=== PATIENT | female | born 1990 | race Caucasian/White ===

== ENCOUNTER 2018-01-06 17:59 | Emergency (ER) | payer OTHER ==
[2018-01-06 18:06] VITALS: TEMP 98; BMI 23.1
--- NOTE | 2018-01-06 18:37 | PDOC ---
History of Present Illness - General Chief Complaint: Pain, Acute Stated Complaint: CRAMPING/ Time Seen by Provider: 01/06/18 18:33 - History of Present Illness Initial Comments: 01/06/18 19:25 The patient is a 27 year old 8 week with no significant PMH who presents for evaluation of nausea, vomiting, and abdominal cramping. The patient reports a 1 day history of intermittent abdominal cramping with consistent nausea and vomiting. The patient reports continued symptoms including lightheadedness and mild headache prompting her presentation to the ED for further evaluation. The patient notes that she is currently being treated for a uti with antibiotics over the past week and is currently asymptomatic with regards to her UTI. She denies any vaginal bleeding or vaginal discharge. She otherwise denies fevers, chills, SOB, chest pain, or changes with bowel movements. Past History - Past Medical History Allergies/Adverse Reactions: Allergies Allergy/AdvReac Type Severity Reaction Status Date / Time No Known Allergies Allergy Verified 01/06/18 19:15 Home Medications: Ambulatory Orders Cephalexin [Keflex] 500 mg PO BID 01/06/18 Nitrofurantoin Monohyd/M-Cryst [Macrobid -] 100 mg PO BID #14 capsule 01/06/18 COPD: No Psychiatric Problems: Yes (anxiety) - Immunization History Immunization Up to Date: Yes - Suicide/Smoking/Psychosocial Hx Smoking History: Never smoked Have you smoked in the past 12 months: No Hx Alcohol Use: No Drug/Substance Use Hx: No Substance Use Type: None Review of Systems - Review of Systems Comments:: 01/06/18 19:37 Constitutional: No fevers, chills, fatigue, malaise HEENT: No Rhinorrhea, nasal congestion, visual changes Cardiovascular: Lightheadedness. No chest pain, syncope, palpitations, Respiratory: No Cough, SOB, Hemoptysis, Gastrointestinal: Cramping, Nausea, Vomiting. No Constipation, Diarrhea, Melena Genitourinary: No Dysuria, Frequency, Urgency, Hesitancy, Hematuria, Flank pain , Vaginal Bleeding, Vaginal Discharge. Musculoskeletal: No Myalgia, arthralgia Skin: No rashes, itching, bruising, pallor Neurologic: Headache. No Dizziness, Numbness, Weakness, or Tingling Psychiatric: No Hallucinations. No SI or HI *Physical Exam - Vital Signs Last Vital Signs Temp Pulse Resp BP Pulse Ox 98.0 F 85 18 124/62 99 01/06/18 18:02 01/06/18 18:02 01/06/18 18:02 01/06/18 18:02 01/06/18 18:02 - Physical Exam Comments: 01/06/18 19:40 General Appearance: Nourished. No Apparent Distress HEENT: EOMI, FREEDOM. No Pharyngeal Erythema, Tonsillar Exudate, Tonsillar Erythema Neck: No Cervical Lymphadenopathy Respiratory/Chest: Lungs Clear, Normal Breath Sounds. No Crackles, Rales, Rhonchi, Wheezing Cardiovascular: Regular Rhythm, Regular Rate. No Murmur, Gallops, Rubs Gastrointestinal/Abdominal: Normal Bowel Sounds, Soft. No Guarding, Rebound, Tenderness Musculoskeletal: No CVA Tenderness Extremity: Normal Capillary Refill Integumentary: Normal Color, Dry, Warm Neurologic: Fully Oriented, Alert, Normal Mood/Affect, Normal Response, ED Treatment Course - LABORATORY CBC & Chemistry Diagram: 01/06/18 18:55 01/06/18 18:55 Medical Decision Making - Medical Decision Making 01/06/18 19:40 The patient is a 27 year old 8 week with no significant PMH who presents for evaluation of nausea, vomiting, and abdominal cramping. Differential includes but is not limited to: Hyperemesis Gravidum, Viral Illness , Infectious, Metabolic Derangement. Given the patient's history, we will obtain a cbc, cmp, beta-hcg, lipase, ua, urine culture and transvag US to evaluate further for possible etiologies. We will treat in the meantime with iv fluids, zofran and iv tylenol. We will continue to monitor and reassess in the meantime. 01/06/18 22:36 CBC, cmp, lipase are unremarkable. UA demonstrates concerns for a UTI with positive leuk esterase and 17 wbc. Transvag US demonstrates a normal intrautrine as preliminarily read by our correction lieutenant radiologist. We will switch the patient to macrobid and are comfortable discharging the patient home at this time with primary care provider follow up. We discussed the results, plan, and return precautions with the patient who voiced understanding and is agreeable with the plan. *DC/Admit/Observation/Transfer Diagnosis at time of Disposition: UTI (urinary tract infection) Qualifiers: Urinary tract infection type: site unspecified Hematuria presence: without hematuria Qualified Code(s): N39.0 - Urinary tract infection, site not specified - Discharge Dispostion Disposition: HOME Condition at time of disposition: Stable Decision to Admit order: No - Prescriptions Prescriptions: Nitrofurantoin Monohyd/M-Cryst [Macrobid -] 100 mg PO BID #14 capsule - Referrals - Patient Instructions Printed Discharge Instructions: DI for Urinary Tract Infection (UTI) Additional Instructions: Please return to the ER if you experience concerning or worsening symptoms including worsening abdominal pain, vaginal bleeding, or vomiting. Your lab results show a urinary tract infection here in the ER. We would like you to switch your antibiotics to one that called Macrobid that we have sent to your pharmacy that you should take twice a day for 7 days. It is important that you call to schedule a follow up appointment with your primary care provider and verse writer within 2-3 days to discuss your ER visit and further management of your symptoms. - Post Discharge Activity
[2018-01-06] MEDS ORDERED: SODIUM CHLORIDE 1,000 ML IV STA (18:47)
[2018-01-06] MEDS ORDERED: ACETAMINOPHEN 1000 MG/100 ML VIAL (NON FORMULARY) IVPB ONE (18:47)
[2018-01-06] MEDS ORDERED: ONDANSETRON 4 MG/2 ML VIAL IVPUSH ONE (18:47)
[2018-01-06] MEDS ORDERED: ACETAMINOPHEN INJECTION 100 ML IVPB ONE (19:06)
[2018-01-06] MEDS ORDERED: ONDANSETRON 4 MG/2 ML VIAL ONE (19:06)
[2018-01-06 19:13] LABS: BASO % 0.6 % (0-2.0); EOS % 2.2 % (0-4.5); HEMATOCRIT 41.9 % (32.4-45.2); HEMOGLOBIN 14.1 GM/dL (10.7-15.3); LYMPH % 23.8 % (8-40); MCH 29.4 pg (25.7-33.7); MCHC 33.6 g/dl (32.0-36.0); MEAN CELL VOLUME 87.4 fl (80-96); MEAN PLT VOLUME 8.6 fl (7.5-11.1); MONO % 6.6 % (3.8-10.2); NEUT % 66.8 % (42.8-82.8); PLATELET COUNT 303 K/MM3 (134-434); RBC 4.79 M/mm3 (3.60-5.2); RDW 12.6 % (11.6-15.6); WHITE BLOOD COUNT 11.7 K/mm3 (4.0-10.0)
[2018-01-06 19:34] LABS: ALBUMIN 4.5 g/dl (3.4-5.0); ANION GAP 7 (8-16); BILIRUBIN,TOTAL 0.2 mg/dL (0.2-1.0); BLOOD UREA NITROGEN 7 mg/dL (7-18); CALCIUM 9.2 mg/dL (8.5-10.1); CHLORIDE 107 mmol/L (98-107); CO2 25 mmol/L (21-32); CREATININE 0.5 mg/dL (0.55-1.02); GLUCOSE,RANDOM 77 mg/dL (74-106); POTASSIUM 3.9 mmol/L (3.5-5.1); SGOT/AST 20 U/L (15-37); SGPT/ALT 36 U/L (12-78); SODIUM 139 mmol/L (136-145); TOT PROT 8.8 g/dl (6.4-8.2)
[2018-01-06 19:35] LABS: ALK PHOS 79 U/L (45-117)
--- NOTE | 2018-01-06 20:03 | PDOC ---
Attending Attestation - Resident Resident Name: Bc Amos - ED Attending Attestation I have performed the following: I have examined & evaluated the patient, The case was reviewed & discussed with the resident, I agree w/resident's findings & plan - HPI HPI: 01/06/18 20:00 healthy 27y/o F G1Po LMP about 8 weeks, no ultrasound to date, incidental diagnosis of UTI 4d ago on cephalexin remains asx now with 1d of nausea/nbnb emesis and suprapubic cramping today without bleeding. no diarrhea, no f/c. - Physicial Exam PE: 01/06/18 20:01 VSS well appearing seated in stretcher slightly dry mucosa s1s2, rrr. ctab soft/nt/nd bs nl, no cvat no edema no rash - Medical Decision Making 01/06/18 20:02 27y/o F 1st trimester pelvic cramping without bleeding. ? vomiting in with dehydration and cramps, ? gastroenteritis. labs, ua ivf, anti-emetic pelvic sono reassess and dispo
[2018-01-06 20:17] LABS: URINE APPEARANCE SLCLOUDY; URINE BILIRUBIN NEGATIVE (<2.0 mg/dL); URINE COLOR LTYELLOW; URINE GLUCOSE (UA) NEGATIVE (NEGATIVE); URINE KETONE NEGATIVE (NEGATIVE); URINE NITRITE NEGATIVE (NEGATIVE); URINE PROTEIN NEGATIVE (NEGATIVE); URINE UROBILINOGEN NEGATIVE mg/dL (0.2-1.0)
[2018-01-06 20:19] LABS: URINE LEUK ESTERASE 2+ (NEGATIVE)
[2018-01-06 20:22] LABS: EPI CELLS FEW /HPF (FEW); URINE BACTERIA RARE /hpf (NONE SEEN); URINE MUCUS RARE
[2018-01-06 21:38] VITALS: BP 120/80; PULSE 80
== END 2018-01-06 21:38 | disposition home or self-care (01) ==
LOC: JER 17:59
PROC: 3E0337Z Introduction of Electrolytic and Water Balance Substance into Peripheral Vein, Percutaneous Approach (ICD-10-PCS; principal; 2018-01-06)
PROC: 3E033NZ Introduction of Analgesics, Hypnotics, Sedatives into Peripheral Vein, Percutaneous Approach (ICD-10-PCS; 2018-01-06)
PROC: 3E033GC Introduction of Other Therapeutic Substance into Peripheral Vein, Percutaneous Approach (ICD-10-PCS; 2018-01-06)
DX: O23.31 Infections of other parts of urinary tract in pregnancy, first trimester (principal); Z3A.08 8 weeks gestation of pregnancy
CPT/HCPCS: 36415; 76801-TC; 80053; 81003; 81015; 83690; 84702; 85025; 87086; 96361; 96374; 96375; 99283-25; J0131; J7030

== ENCOUNTER 2018-06-26 11:57 | Emergency (ER) | payer OTHER ==
[2018-06-26 12:07] VITALS: BMI 28.3
[2018-06-26] MEDS ORDERED: SODIUM CHLORIDE 1,000 ML IV STA (12:37)
--- NOTE | 2018-06-26 12:43 | PDOC ---
History of Present Illness - General Chief Complaint: Palpitations Stated Complaint: DIFFICULTY BREATHING,32 WKS Time Seen by Provider: 06/26/18 12:19 History Source: Patient Exam Limitations: No Limitations - History of Present Illness Initial Comments: 06/26/18 12:36 Pt is a previously healthy at 32w5d presenting to ED with complaints of palpitations. Pt says this is the first time she is experiencing palpitations during the . Pt says she has been having headaches, cramping/ contractions but never palpitations. Pt says she also feels short of breath and has pain in the pelvic region when she walks. She denies vaginal bleeding but admits to thick wet discharge (is unsure if she has ruptured her membranes). Last ultrasound was one week ago. Pt says she wakes up with headaches and sees spots sometimes. She denies fever, chills, cough, chest pain, abdominal pain, vomiting, diarrhea, swelling in the legs, history of blood clots. OB: Toni PMH: none PSH: bunion removal Meds: PNV, iron Social: denies Allergies: nkda Past History - Past Medical History Allergies/Adverse Reactions: Allergies Allergy/AdvReac Type Severity Reaction Status Date / Time No Known Allergies Allergy Verified 06/26/18 12:03 Home Medications: Ambulatory Orders NK [No Known Home Medication] 02/12/18 COPD: No Psychiatric Problems: Yes (anxiety) - Immunization History Immunization Up to Date: Yes - Suicide/Smoking/Psychosocial Hx Smoking History: Never smoked Have you smoked in the past 12 months: No Hx Alcohol Use: No Drug/Substance Use Hx: No Substance Use Type: None Review of Systems - Review of Systems Constitutional: No: Chills, Fever, Weakness HEENTM: Yes: Other (black spots in vision). No: Eye Pain, Throat Pain Respiratory: Yes: Shortness of Breath, SOB with Exertion, SOB at Rest. No: Cough, Hemoptysis Cardiac (ROS): Yes: Lightheadedness, Palpitations. No: Chest Pain, Syncope ABD/GI: Yes: Nausea. No: Constipated, Diarrhea, Vomiting : Yes: See HPI, Other (no vaginal bleeding. thick mucus discharge). No: Burning, Dysuria Musculoskeletal: No: Symptoms Reported Integumentary: No: Symptoms Reported Neurological: Yes: Headache, Tremors. No: Numbness, Paresthesia, Tingling *Physical Exam - Vital Signs Last Vital Signs Temp Pulse Resp BP Pulse Ox 98.3 F 111 H 16 124/67 96 06/26/18 12:04 06/26/18 12:04 06/26/18 12:04 06/26/18 12:04 06/26/18 12:04 - Physical Exam General Appearance: Yes: Nourished, Appropriately Dressed, Mild Distress Neck: positive: Trachea midline, Supple. negative: Lymphadenopathy (R), Lymphadenopathy (L) Respiratory/Chest: positive: Lungs Clear, Normal Breath Sounds. negative: Crackles, Rales, Rhonchi, Stridor, Wheezing Cardiovascular: positive: S1, S2, Tachycardia. negative: Edema, JVD, Murmur Vascular Pulses: Carotid (R): 2+, Carotid (L): 2+, Dorsalis-Pedis (R): 2+, Doralis-Pedis (L): 2+ Gastrointestinal/Abdominal: positive: Soft, Other (gravid). negative: Distended , Guarding, Rebound, Tenderness Musculoskeletal: negative: CVA Tenderness Extremity: positive: Normal Capillary Refill Integumentary: positive: Normal Color, Dry, Warm Neurologic: positive: meat soaker II-XII NML intact, Fully Oriented, Alert, Normal Mood/ Affect, Normal Response, Motor Strength 12/16 ED Treatment Course - LABORATORY CBC & Chemistry Diagram: 06/26/18 12:56 06/26/18 12:56 Medical Decision Making - Medical Decision Making 06/26/18 12:41 Pt is a previously healthy at 32w5d presenting to ED with complaints of palpitations. Pt says this is the first time she is experiencing palpitations during the . Pt says she has been having headaches, cramping/ contractions but never palpitations. Vitals: HR 111 PE: gravid, tachycardic, benign exam no leg swelling, no calf tenderness. DDx: PE, ACS, PNa, PTx, HELPP, preecclampsia, uti -low suspicion for acs given pt has no risk factors. same for pna (no cough, no fevers) Will draw labs and give NS. Higher suspicion for PE. Will talk to pt about CTA. TSH added 06/26/18 13:52 Laboratory Tests 1106/26/18 06/26/18 12:56 12:56 12:56 WBC 12.2 H Hgb 12.2 Hct 36.6 Plt Count 229 Absolute Neuts (auto) 9.6 H PT with INR 11.00 INR 0.93 PTT (Actin FS) 26.0 Sodium 137 Potassium 4.0 BUN 6 L Creatinine 0.4 L Calcium 9.0 Phosphorus 3.9 Magnesium 2.1 Alkaline Phosphatase 146 H Quick bedside ultrasound done by Dr. Longoria revealed FHR of 126. Waiting for TSH. EK06/26/18 14:43 Laboratory Tests 06/26/18 12:56 Troponin I < 0.02 TSH 1.09 Pt was amenable to CTA. Upon having pt sign consent form, pt refusing CTA. Pt told that she could potentially have a PE and pt was given oral and written information about PE and how can occur if undiagnosed. Pt also given information about the level of radiation that CT gives. Pt would rather go to floor and if concerned will come back later. Calling OB floor to see if they will accept patient since she is not medically cleared yet (refusing CT). 06/26/18 14:52 Could not have patient sign out AMA because OB floor would not accept patient. Pt needs to be seen by OB. Will discharge patient but I am documenting that patient refused a procedure: CTA. Pt is oriented x3, is fully capable of making medical decisions. PT was given potential side effects of having study done and given complications of not having test done and pt has undiagnosed PE including , lung complications, IN, heart failure. Patient was given strict return precautions. Advised pt to come back to ED if symptoms get worse or if she changes her mind again. *DC/Admit/Observation/Transfer Diagnosis at time of Disposition: Palpitation - Discharge Dispostion Disposition: HOME Condition at time of disposition: Stable Decision to Admit order: No - Referrals Referrals: Bc Gandhi MD [Primary Care Provider] - Emely Muñoz MD [Certified Nurse [employer] Farmer] - - Patient Instructions Printed Discharge Instructions: DI for Palpitations Additional Instructions: you were seen here today for evaluation of palpitations and shortness of breath. Your lab tests were normal. One thing we are concerned about is a pulmonary embolus (PE) which is a clot in the blood vessels of the lungs. A way to diagnose this is a CT scan however this provides radiation. The amount of radiation is minimal however you are choosing not to have this done at this time. Pulmonary embolisms are dangerous and it can cause . Please come back to the emergency room if you continue to experience palpitations, if you feel short of breath, if you are feeling lightheaded, you pass out, you are coughing up blood or if any new concerning symptom develops. Thank you - Post Discharge Activity
--- NOTE | 2018-06-26 13:07 | PDOC ---
Attending Attestation - Resident Resident Name: Sa Adoreira - ED Attending Attestation I have performed the following: I have examined & evaluated the patient, The case was reviewed & discussed with the resident, I agree w/resident's findings & plan, Exceptions are as noted - HPI HPI: 06/26/18 13:06 27yo F at 32+5 p/w intermittent palpitations since this AM. Last for a minute at a time and then resolve. PT also notes that over the last week when she walks about 1/2 block, she feels winded and out of breath. Denies CP. Denies fevers, coughing. Has never had similar symptoms in the past. Denies LE edema or calf pain. Pt also notes a few days of lower abdominal pressure. No vaginal bleeding. She was concerned for the baby and thus presented to L&D this morning where they sent her down to the ED for medical clearance due to the SOB and palpitations. Pt has no personal or family hx of clots. Denies N/V/D, headache, focal weakness or numbness. - Physicial Exam PE: 06/26/18 14:35 GENERAL: Awake, alert, and fully oriented, in no acute distress HEAD: No signs of trauma EYES: PERRLA, EOMI, sclera anicteric, conjunctiva clear ENT: Oropharynx clear without exudates. Moist mucosa NECK: Normal ROM, supple, no lymphadenopathy, JVD, or masses LUNGS: Breath sounds equal, clear to auscultation bilaterally. No wheezes, and no crackles HEART: Regular rate and rhythm, normal S1 and S2, no murmurs, rubs or gallops ABDOMEN: Soft, nontender, normoactive bowel sounds. No guarding, no rebound. Gravid uterus, consistent with 32 weeks EXTREMITIES: Normal range of motion, no edema. No cords, erythema, or tenderness NEUROLOGICAL: Normal speech, cranial nerves intact, 5/5 strength in all 4 extremities, normal sensation to light touch in all 4 extremities SKIN: Warm, Dry, normal turgor, no rashes or lesions noted. - Medical Decision Making 06/26/18 14:39 27yo F currently 32 weeks presents to the ED with VENEGAS, palpitations and lower abd pressure. Vitals initially with tachycardia to 111 but normalized without intervention within a few mins. Exam with gravid uterus, but no ttp, otherwise unremarkable. EKG non ischemic. Had a lengthy discussion about the possibility of PE and the importance of early diagnosis. Discussed with pt that a CTA Chest was indicated to r/o PE. Discussed the risks of the radiation to the fetus but that the benefits of catching a PE early and treating early outweighed the risks to the fetus. Initially, pt verbally consented to our plan to get the CTA. When we presented her with the written consent, she states she changed her mind. She is more concerned about the due to the lower abdominal pressure and would prefer to be evaluated in L&D first. She states she may return to the ED afterwards to complete her evaluation The patient is clinically sober, free from distracting injury, appears to have intact insight and judgment and reason and in my opinion has the capacity to make decisions. The patient presents with SOB/palpitations. I have explained that I am concerned that this may represent a pulmonary embolism (PE); she has verbalized an understanding of my concerns. I have told the patient that while her labs were normal, she could still have a PE. I have discussed the need for a CTA chest to get more information about potential causes of the patients VENEGAS/ palpitations. I have told the patient that if she leaves and has worsening SOB/ palpitations, she could get much worse, could become critically ill, and could possibly become disabled or . I have asked her to stay in the hospital for the CTA. I have discussed these concerns with the patients partner who is at the bedside and he is unable to convince her to stay for further evaluation. The patient is not willing to undergo a CTA chest. She is unwilling to stay overnight for monitoring. She is refusing any further care and is leaving against medical advice. I am unable to convince the patient to stay, I have asked her to return as soon as possible to complete her evaluation. I have answered all their questions. 06/26/18 16:41 Pt returned to the ED after L&D eval was unremarkable REquests we get the CTA as the staff in L&D convinced her to Feels better but wants to make sure she does not have a clot CTA ordered Rpt trop ordered 06/26/18 18:11 2nd trop negative CTA negative for PE Symptoms likely 2/2 IVC/lung compression as fetus grows Rpt vitals unremarkable Pt feels better, requests DC home I discussed the physical exam findings, ancillary test results and final diagnoses with the patient. I answered all of the patient's questions. The patient was satisfied with the care received and felt comfortable with the discharge plan and treatment plan. The patient will call their primary care physician within 24 hours to arrange follow-up and will return to the Emergency Department with any new, persistent or worsening symptoms. Heart Score/ECG Review #1 06/26/18 14:38 Twelve-lead EKG was performed and reviewed by me. Normal sinus rhythm, rate 91. Normal axis and intervals. No ST elevations or T-wave inversions.
[2018-06-26 13:29] LABS: INR 0.93 (0.83-1.09)
[2018-06-26 13:39] LABS: ALBUMIN 2.9 g/dl (3.4-5.0); ALK PHOS 146 U/L (45-117); ANION GAP 7 MMOL/L (8-16); BILIRUBIN,TOTAL 0.4 mg/dL (0.2-1); BLOOD UREA NITROGEN 6 mg/dL (7-18); CHLORIDE 105 mmol/L (98-107); CO2 25 mmol/L (21-32); CREATININE 0.4 mg/dL (0.55-1.3); GLUCOSE,RANDOM 90 mg/dL (74-106); MAGNESIUM 2.1 mg/dL (1.8-2.4); PHOSPHOROUS 3.9 mg/dL (2.5-4.9); SGOT/AST 27 U/L (15-37); SGPT/ALT 45 U/L (13-61); SODIUM 137 mmol/L (136-145); TOT PROT 6.9 g/dl (6.4-8.2)
[2018-06-26 13:47] LABS: BASO % 0.8 % (0-2.0); EOS % 0.6 % (0-4.5); HEMATOCRIT 36.6 % (32.4-45.2); HEMOGLOBIN 12.2 GM/dL (10.7-15.3); LYMPH % 13.4 % (8-40); MCHC 33.4 g/dl (32.0-36.0); MEAN CELL VOLUME 89.7 fl (80-96); MEAN PLT VOLUME 8.5 fl (7.5-11.1); MONO % 6.5 % (3.8-10.2); NEUT % 78.7 % (42.8-82.8); PLATELET COUNT 229 K/MM3 (134-434); RBC 4.08 M/mm3 (3.60-5.2); WHITE BLOOD COUNT 12.2 K/mm3 (4.0-10.0)
[2018-06-26 15:10] LABS: URINE APPEARANCE CLEAR; URINE BILIRUBIN NEGATIVE (<2.0 mg/dL); URINE COLOR STRAW; URINE GLUCOSE (UA) NEGATIVE (NEGATIVE); URINE KETONE NEGATIVE (NEGATIVE); URINE LEUK ESTERASE NEGATIVE (NEGATIVE); URINE NITRITE NEGATIVE (NEGATIVE); URINE PROTEIN NEGATIVE (NEGATIVE); URINE UROBILINOGEN NEGATIVE mg/dL (0.2-1.0)
[2018-06-26 15:23] LABS: ACANTHOCYTES 0; ANISOCYTOSIS 0; HELMET CELLS 0; HOWELL-JOLLY BODIES 0; MACROCYTOSIS 0; OVALOCYTE 0; PLATELET ESTIMATE NORMAL; ROULEAU 0; SICKELED CELLS 0; TARGET CELLS 0; TEAR DROP CELLS 0; TOXIC GRANULATION 0
[2018-06-26 16:09] VITALS: TEMP 97.8
[2018-06-26 18:10] VITALS: BP 110/61; PULSE 90
--- NOTE | 2018-06-27 10:50 | EKG ---
Test Reason : Blood Pressure : / mmHG Vent. Rate : 091 BPM Atrial Rate : 091 BPM P-R Int : 124 ms QRS Dur : 080 ms QT Int : 332 ms P-R-T Axes : 049 052 035 degrees QTc Int : 408 ms NORMAL SINUS RHYTHM SEPTAL INFARCT , AGE UNDETERMINED ABNORMAL ECG WHEN COMPARED WITH ECG OF 10-APR-2016 15:44, SEPTAL INFARCT IS NOW PRESENT Confirmed by BERNARD MA, BRIAN ([id number]) on 06/27/2018 10:50:16 AM Referred By: Confirmed By:BRIAN WAGNER MD
== END 2018-06-26 18:00 | disposition home or self-care (01) ==
LOC: JER 11:57
PROC: 3E0337Z Introduction of Electrolytic and Water Balance Substance into Peripheral Vein, Percutaneous Approach (ICD-10-PCS; principal; 2018-06-26)
PROC: BY4FZZZ Ultrasonography of Third Trimester, Single Fetus (ICD-10-PCS; 2018-06-26)
DX: O26.893 Other specified pregnancy related conditions, third trimester (principal); R00.2 Palpitations; Z3A.32 32 weeks gestation of pregnancy
CPT/HCPCS: 36415; 71275-TC; 76801-TC; 80053; 81003; 83735; 84100; 84443; 84484; 85025; 85610; 85730; 86850; 86900; 86901; 93005; 93010; 96360; 99285-25; J7030

== ENCOUNTER 2018-08-06 06:21 | Inpatient (IN) | payer OTHER ==
[2018-08-06] MEDS: DEXTROSE 5%-LACTATED RINGERS 1,000 ML IV SCH (07:30)
[2018-08-06] MEDS ORDERED: AMPICILLIN SODIUM 2 GM VIAL ONE (07:35)
[2018-08-06 08:16] VITALS: BMI 30.9
[2018-08-06] MEDS ORDERED: AMPICILLIN - 2 GM in SODIUM CHLORIDE 100 ML IVPB ONE (08:29)
--- NOTE | 2018-08-06 08:35 | HP ---
Past Medical History - Admission Chief Complaint: Uterine contractions History of Present Illness: 27yo @ 38.1wks here with uterine contractions, q 6-7 mins 2 prior L&D visits in the last 24 hrs for ctx and spotting. Last 2cm No LOF. +FM. 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: Alzheimer's, CVA, Dementia, Migraine, Multiple Sclerosis, Peripheral Neuropathy, Parkinson's, Seizure, Syncope, TIA, Vertigo, Other Cardiovascular: No: AFIB, Aneurysm, Aortic Insufficiency, Aortic Stenosis, CAD, CHF, Deep Vein Thrombosis, HTN, Hyperlipdemia, UT, Mitral Insufficiency, Mitral Stenosis, Murmur, Pulmonary Hypertension, Other Pulmonary: No: Asthma, Bronchitis, Cancer, COPD, O2 Dependent, Pneumonia, Previously Intubated, Pulmonary Embolus, Pulmonary Fibrosis, Sleep Apnea, Other Gastrointestinal: No: Ascites, Cancer, Constipation, Crohn's Disease, Diverticulitis, Diverticulosis, Esophageal Varices, Gastritis, GERD, GI Bleed, Hemorrhoids, Hiatal Hernia, Inflamatory Bowel Disease, Irritable Bowel Disease, Pancreatitis, Peptic Ulcer Disease, Ulcerative Colitis, Other Hepatobiliary: No: Cirrhosis, Cholelithiasis, Cholecystitis, Choledocholithiasis , Hepatitis A, Hepatitis B, Hepatitis C, Other Renal/: No: Renal Failure, Renal Inusuff, BPH, Cancer, Hematuria, Hemodialysis , Neurogenic Bladder, Renal Calculi, UTI, Other Reproductive: No: Ectopic , Endometriosis, Fibroids, PID, Polycystic Ovary Syndrome, Postmenopausal, Other ...: 2 ...Para: 0 ...Term: 0 ...: 0 ...Spon : 0 ...Induced : 1 ...Multiple Gestation: 0 ...LMP: 11/13/17 ... Weeks Gestation by Dates: 38.0 ...EDC by Dates: 08/20/18 ...EDC by Sono: 08/16/18 - Past Surgical History Hx Myomectomy: No Hx Transabdominal Cerclage: No - Smoking History Smoking history: Unknown if ever smoked Have you smoked in the past 12 months: No - Alcohol/Substance Use Hx Alcohol Use: No History of Substance Use: reports: None - Social History Usual Living Arrangement: Yes: With Spouse History of Recent Travel: No Home Medications - Allergies Allergies/Adverse Reactions: Allergies Allergy/AdvReac Type Severity Reaction Status Date / Time apple Allergy Intermediate Swelling Verified 08/05/18 08:59 pesticide Allergy Intermediate Swelling Verified 07/27/18 18:37 soy Allergy Intermediate Swelling Verified 08/05/18 08:59 - Home Medications Home Medications: Ambulatory Orders Ferrous Sulfate 325 mg PO DAILY 07/27/18 Pnv No.95/Ferrous Fum/Folic AC [ Vitamin Tablet] 1 each PO DAILY Physical Exam - Maternity Vital Signs: Vital Signs Temperature 98.2 F 08/06/18 07:20 Pulse Rate 82 08/06/18 07:20 Respiratory Rate 20 08/06/18 07:20 Blood Pressure 136/84 08/06/18 07:20 O2 Sat by Pulse Oximetry (%) - Abdominal Exam/OB Number of Fetuses: Single Presentation: Vertex Contractions: Yes Regularity: Irregular Intensity: Mild Category: I Accelerations: Uniform Decelerations: None - Vaginal Exam/OB Vaginal Bleediing: No Dilatation (cm): 4-5 Effacement (%): 100 Amniotic Membrane Status: Intact Presentation: Vertex/Position Station: -3 - Physical Exam Edema: No Assessment/Plan 27yo @ 38.0wks here with uterine contractions Admit to L&D NPO, IVFs Cat I Epidural Pitocin/AROM Anticipate Trisha Plummer MD
[2018-08-06 10:24] LABS: BASO % 0.1 % (0-2.0); HEMATOCRIT 35.3 % (32.4-45.2); HEMOGLOBIN 11.7 GM/dL (10.7-15.3); LYMPH % 7.4 % (8-40); MCH 29.8 pg (25.7-33.7); MCHC 33.3 g/dl (32.0-36.0); MEAN CELL VOLUME 89.6 fl (80-96); MEAN PLT VOLUME 8.6 fl (7.5-11.1); MONO % 4.1 % (3.8-10.2); NEUT % 88.4 % (42.8-82.8); PLATELET COUNT 197 K/MM3 (134-434); RBC 3.94 M/mm3 (3.60-5.2); RDW 13.6 % (11.6-15.6); WHITE BLOOD COUNT 14.1 K/mm3 (4.0-10.0)
[2018-08-06 10:34] LABS: INR 0.95 (0.83-1.09); PROTHROMBIN TIME (PATIENT) 11.2 SEC (9.7-13.0)
[2018-08-06] MEDS ORDERED: BUTORPHANOL TARTRATE 1 MG/ML VIAL ONE ×3 (10:44→15:25)
[2018-08-06] MEDS ORDERED: PROMETHAZINE HCL 25 MG/1 ML VIAL ONE ×2 (10:44→15:25)
[2018-08-06] MEDS ORDERED: BUTORPHANOL TARTRATE 1 MG/ML VIAL IVPB ONE (10:49)
[2018-08-06] MEDS ORDERED: PROMETHAZINE HCL 25 MG/1 ML VIAL IVPUSH ONE (10:49)
[2018-08-06] MEDS: ELECTROLYTE-148 SOLN 1,000 ML IV SCH (10:50)
[2018-08-06] MEDS: AMPICILLIN - 1 GM in SODIUM CHLORIDE 100 ML IVPB SCH ×3 (11:40→21:20)
[2018-08-06] MEDS ORDERED: AMPICILLIN SODIUM 1 GM VIAL ONE ×2 (11:52→16:03)
[2018-08-06 13:04] LABS: COCAINE, UR NEGATIVE ng/ml (CUTOFF=300); METHADONE, UR NEGATIVE ng/ml (CUTOFF=300); OPIATES, URI NEGATIVE ng/ml (CUTOFF=300); PHENCYCLIDINE,URINE NEGATIVE ng/ml (CUTOFF=25); URINE AMPHETAMINES NEGATIVE ng/ml (CUTOFF=500); URINE BARBITURATES NEGATIVE ng/ml (CUTOFF=200); URINE BENZODIAZEPINES NEGATIVE ng/ml (CUTOFF=200)
[2018-08-06 13:04] LABS: ANION GAP 11 MMOL/L (8-16); BLOOD UREA NITROGEN 6 mg/dL (7-18); CALCIUM 8.6 mg/dL (8.5-10.1); CHLORIDE 102 mmol/L (98-107); CO2 23 mmol/L (21-32); CREATININE 0.5 mg/dL (0.55-1.3); GLUCOSE,RANDOM 115 mg/dL (74-106); POTASSIUM 3.5 mmol/L (3.5-5.1); SODIUM 135 mmol/L (136-145)
[2018-08-06] MEDS ORDERED: OXYTOCIN 30 UNITS in 0.9% NS 30 UNIT/500 ML INFUS.BAG IVPB ONE (15:26)
[2018-08-06] MEDS: OXYTOCIN 30 UNITS in 0.9% NS 30 UNIT/500 ML INFUS.BAG IVPB SCH (15:30)
[2018-08-06] MEDS ORDERED: PROMETHAZINE HCL 25 MG/1 ML VIAL IVPB PRN (16:22)
[2018-08-06] MEDS ORDERED: BUTORPHANOL TARTRATE 1 MG/ML VIAL IVPUSH ONE (16:30)
[2018-08-06] MEDS ORDERED: LIDOCAINE HCL 1% PRESERVATIVE FREE - 30ML VIAL ONE (17:00)
[2018-08-06] MEDS: OXYTOCIN 20 UNITS in 0.9% NS 20 UNIT/1,000 ML INFUS.BAG IV SCH (18:45)
[2018-08-06] MEDS ORDERED: BENZOCAINE 28 GM HEMORRHOIDAL OINTMENT TP PRN (19:18)
[2018-08-06] MEDS ORDERED: METHYLERGONOVINE MALEATE 0.2 MG/1 ML AMP IM PRN (19:18)
[2018-08-06] MEDS ORDERED: WITCH HAZEL 50% (TUCKS) 40 PAD/JAR PAD TP PRN (19:18)
[2018-08-06] MEDS ORDERED: BENZOCAINE 20% 57 GM BOTTLE TP PRN (19:18)
[2018-08-06] MEDS ORDERED: BISACODYL 10 MG SUPP.RECT RC PRN (19:18)
[2018-08-06] MEDS ORDERED: IBUPROFEN 600 MG TABLET (FP) PO ONE (19:19)
[2018-08-06] MEDS ORDERED: ACETAMINOPHEN 325 MG TABLET (FP) ONE (19:20)
[2018-08-06] MEDS: ACETAMINOPHEN 325 MG TABLET (FP) PO PRN (19:20)
[2018-08-06] MEDS: IBUPROFEN 600 MG TABLET (FP) PO PRN (19:20)
--- NOTE | 2018-08-06 19:23 | PN ---
Delivery - Delivery Vaginal Delivery: Spontaneous Type of Anesthesia: Local Episiotomy/Laceration: 1st degree EBL (cc): 300 Delivery, Single - Stages of Labor Date 1st Stage Initiatied: 08/06/18 Time 1st Stage Initiated: 12:00 Date 2nd Stage Initiated: 08/06/18 Time 2nd Stage Initiated: 18:00 Date of Delivery: 08/06/18 Time of Delivery: 18:43 Time Placenta Delivered: 18:45 - Condition of Milk Condenser/Durability Technician Present: No Gender: Female Position: Right, OA Total Hours ROM (Hrs/Mins): 3hrs - 27 mins - 1 Minute Total Score: 9 5 Minutes Total Score: 9 - Feeding Plan Initial Plan: Exclusive throughout hospitalization Remarks - Remarks Remarks: Normal spontaneous vaginal delivery of a live girl over first degree laceration. Nose / Oropharynx suctioned @ perineum. Cord clamped and cut. Baby handed to nurse. Placenta expelled spontaneously intact. Laceration repaired with 2.0 Chromic. Mother in stable condition.
[2018-08-07] MEDS: AMPICILLIN - 1 GM in SODIUM CHLORIDE 100 ML IVPB SCH ×3 (05:59→17:49)
[2018-08-07 08:53] LABS: BASO % 0.1 % (0-2.0); EOS % 0.3 % (0-4.5); HEMATOCRIT 31.9 % (32.4-45.2); HEMOGLOBIN 11.2 GM/dL (10.7-15.3); LYMPH % 10.8 % (8-40); MCH 31.7 pg (25.7-33.7); MEAN CELL VOLUME 90.5 fl (80-96); MEAN PLT VOLUME 8.9 fl (7.5-11.1); MONO % 5.6 % (3.8-10.2); NEUT % 83.2 % (42.8-82.8); PLATELET COUNT 197 K/MM3 (134-434); RBC 3.53 M/mm3 (3.60-5.2); RDW 13.6 % (11.6-15.6); WHITE BLOOD COUNT 14.8 K/mm3 (4.0-10.0)
[2018-08-07] MEDS: PRENATAL VITAMINS W/ FOLIC ACID TABLET (FP) PO SCH (09:22)
--- NOTE | 2018-08-07 09:42 | PN ---
Post Progress Note - Subjective Subjective: 27 yo Para 1 status post vaginal delivery, seen and evaluated. Doing well. Post Day: 1 Type of Delivery: Vital Signs: Vital Signs Temperature 98.1 F 08/07/18 08:24 Pulse Rate 84 08/07/18 08:24 Respiratory Rate 18 08/07/18 08:24 Blood Pressure 112/69 08/07/18 08:24 O2 Sat by Pulse Oximetry (%) Breast Exam: Yes: Soft Uterus: Yes: Fundus Firm Abdomen/GI: Yes: Abdomen soft, Tolerating PO Lochia: Yes: Rubra Lochia, amount: Moderate Extremities: Yes: Calves non-tender Perineum: Yes: Laceration (healing) Activity: Ambulating - Labs Labs: CBC WBC 14.8 K/mm3 (4.0-10.0) H 08/07/18 07:25 RBC 3.53 M/mm3 (3.60-5.2) L 08/07/18 07:25 Hgb 11.2 GM/dL (10.7-15.3) 08/07/18 07:25 Hct 31.9 % (32.4-45.2) L 08/07/18 07:25 MCV 90.5 fl (80-96) 08/07/18 07:25 MCH 31.7 pg (25.7-33.7) 08/07/18 07:25 MCHC 35.0 g/dl (32.0-36.0) 08/07/18 07:25 RDW 13.6 % (11.6-15.6) 08/07/18 07:25 Plt Count 197 K/MM3 (134-434) 08/07/18 07:25 MPV 8.9 fl (7.5-11.1) 08/07/18 07:25 Absolute Neuts (auto) 12.3 K/mm3 (1.5-8.0) H 08/07/18 07:25 Neutrophils % 83.2 % (42.8-82.8) H 08/07/18 07:25 Lymphocytes % 10.8 % (8-40) D 08/07/18 07:25 Monocytes % 5.6 % (3.8-10.2) 08/07/18 07:25 Eosinophils % 0.3 % (0-4.5) D 08/07/18 07:25 Basophils % 0.1 % (0-2.0) 08/07/18 07:25 Nucleated RBC % 0 % (0-0) 08/07/18 07:25 Problem List - Problems (1) Status post normal vaginal delivery Code(s): WFX6239 - Assessment/Plan Status post vaginal delivery Stable Continue routine care
[2018-08-07] MEDS: IBUPROFEN 600 MG TABLET (FP) PO PRN ×2 (13:00→21:19)
[2018-08-07] MEDS: ACETAMINOPHEN 325 MG TABLET (FP) PO PRN ×2 (13:00→21:18)
[2018-08-07] MEDS: ELECTROLYTE-148 SOLN 1,000 ML IV SCH (20:27)
[2018-08-07] MEDS: DEXTROSE 5%-LACTATED RINGERS 1,000 ML IV SCH (21:51)
[2018-08-07] MEDS: OXYTOCIN 20 UNITS in 0.9% NS 20 UNIT/1,000 ML INFUS.BAG IV SCH (21:51)
[2018-08-07] MEDS: OXYTOCIN 30 UNITS in 0.9% NS 30 UNIT/500 ML INFUS.BAG IVPB SCH (21:51)
[2018-08-07] MEDS ORDERED: SENNOSIDES/DOCUSATE COMBO (SENNA PLUS) TABLET (UD) PO PRN (22:00)
[2018-08-08] MEDS: IBUPROFEN 600 MG TABLET (FP) PO PRN (06:01)
[2018-08-08] MEDS: ACETAMINOPHEN 325 MG TABLET (FP) PO PRN (06:02)
[2018-08-08 08:25] VITALS: BP 133/64; PULSE 66; TEMP 97.7
--- NOTE | 2018-08-08 08:54 | PN ---
Post Progress Note - Subjective Subjective: no complains Post Day: 2 Type of Delivery: Vital Signs: Vital Signs Temperature 97.7 F 08/08/18 08:22 Pulse Rate 66 08/08/18 08:22 Respiratory Rate 18 08/08/18 08:22 Blood Pressure 133/64 08/08/18 08:22 O2 Sat by Pulse Oximetry (%) Breast Exam: Yes: Soft, Other (plans to BF at home , presently bottle feeding ) . No: Engorged Uterus: Yes: Fundus Firm, Fundus below umbilicus, Non-tender Lochia: Yes: Rubra Lochia, amount: Moderate Extremities: Yes: Calves non-tender Perineum: Yes: Intact Activity: Ambulating - Labs Labs: CBC WBC 14.8 K/mm3 (4.0-10.0) H 08/07/18 07:25 RBC 3.53 M/mm3 (3.60-5.2) L 08/07/18 07:25 Hgb 11.2 GM/dL (10.7-15.3) 08/07/18 07:25 Hct 31.9 % (32.4-45.2) L 08/07/18 07:25 MCV 90.5 fl (80-96) 08/07/18 07:25 MCH 31.7 pg (25.7-33.7) 08/07/18 07:25 MCHC 35.0 g/dl (32.0-36.0) 08/07/18 07:25 RDW 13.6 % (11.6-15.6) 08/07/18 07:25 Plt Count 197 K/MM3 (134-434) 08/07/18 07:25 MPV 8.9 fl (7.5-11.1) 08/07/18 07:25 Absolute Neuts (auto) 12.3 K/mm3 (1.5-8.0) H 08/07/18 07:25 Neutrophils % 83.2 % (42.8-82.8) H 08/07/18 07:25 Lymphocytes % 10.8 % (8-40) D 08/07/18 07:25 Monocytes % 5.6 % (3.8-10.2) 08/07/18 07:25 Eosinophils % 0.3 % (0-4.5) D 08/07/18 07:25 Basophils % 0.1 % (0-2.0) 08/07/18 07:25 Nucleated RBC % 0 % (0-0) 08/07/18 07:25 Problem List - Problems (1) Status post normal vaginal delivery Code(s): HMH7054 - (2) Encounter for care and examination after delivery Code(s): Z39.2 - ENCOUNTER FOR ROUTINE FOLLOW-UP Assessment/Plan stable. plan discharge today
[2018-08-08] MEDS: PRENATAL VITAMINS W/ FOLIC ACID TABLET (FP) PO SCH (09:07)
--- NOTE | 2018-08-08 10:02 | DS ---
Physical Examination Vital Signs: Vital Signs Temperature 97.7 F 08/08/18 08:22 Pulse Rate 66 08/08/18 08:22 Respiratory Rate 18 08/08/18 08:22 Blood Pressure 133/64 08/08/18 08:22 O2 Sat by Pulse Oximetry (%) Constitutional: Yes: Well Nourished, No Distress, Calm Eyes: Yes: WNL, Conjunctiva Clear, EOM Intact HENT: Yes: WNL, Atraumatic, Normocephalic Neck: Yes: WNL, Supple, Trachea Midline Cardiovascular: Yes: WNL, Regular Rate and Rhythm Respiratory: Yes: WNL, Regular, CTA Bilaterally Gastrointestinal: Yes: WNL, Normal Bowel Sounds Musculoskeletal: Yes: WNL Extremities: Yes: WNL Edema: No Integumentary: Yes: WNL Neurological: Yes: WNL, Alert, Oriented ...Motor Strength: WNL Psychiatric: Yes: WNL Labs: CBC, BMP 08/07/18 07:25 08/06/18 09:18 Discharge Summary Reason For Visit: LABOR Current Active Problems Encounter for care and examination after delivery (Acute) Status post normal vaginal delivery (Acute) Procedures: Principal: Other Procedures: Hospital Course: Patient presented in active labor Had uncomplicated Met all milestones Was discharged home on PPD#2 Condition: Stable - Instructions Diet, Activity, Other Instructions: Discharge Instructions * Out of Bed * * Regular Diet * Jessica Care * Avoid sex for 6 weeks * RTC 4-6 weeks for follow up If you experience excessive bleeding or fever over 101 degrees, call doctor, the clinic or go to the Emergency Room. Referrals: Trisha Plummer MD [Staff Physician] - Disposition: HOME - Home Medications Comprehensive Discharge Medication List: Ambulatory Orders Ferrous Sulfate 325 mg PO DAILY 07/27/18 Pnv No.95/Ferrous Fum/Folic AC [ Vitamin Tablet] 1 each PO DAILY Acetaminophen [Tylenol .Regular Strength -] 650 mg PO Q3H PRN tablet 08/07/18 Benzocaine [Americaine 20% [place] -] 1 spray TP PRN PRN bottle 08/07/18 Ibuprofen [Motrin -] 200 mg PO Q4H PRN tablet 08/07/18 Vitamins (Sjr) - 1 tab PO DAILY tablet 08/07/18 Witch Katie 50% (Tucks) [Tucks Pads -] 1 pad TP PRN PRN pad 08/07/18
== END 2018-08-08 12:09 | disposition home or self-care (01) | DRG 560 ==
LOC: JDEL 06:21 → JLDR 07:20 → J3W 21:02
PROVIDERS: ADMIT Obstetrics & Gynecology; ATTEND Obstetrics & Gynecology
PROC: 10E0XZZ Delivery of Products of Conception, External Approach (ICD-10-PCS; principal; 2018-08-06)
PROC: 0HQ9XZZ Repair Perineum Skin, External Approach (ICD-10-PCS; 2018-08-06)
PROC: 0W8NXZZ Division of Female Perineum, External Approach (ICD-10-PCS; 2018-08-06)
DX: O70.0 First degree perineal laceration during delivery (principal); Z3A.38 38 weeks gestation of pregnancy; Z37.0 Single live birth
CPT/HCPCS: 36415; 59025; 59409; 80048; 80307; 85025; 85610; 86593; 86850; 86900; 86901

== ENCOUNTER 2019-07-18 19:07 | Emergency (ER) | payer OTHER ==
[2019-07-18 19:14] VITALS: BP 105/71; PULSE 88; TEMP 98.8; BMI 23.6
[2019-07-18] MEDS ORDERED: SODIUM CHLORIDE 1,000 ML IV ONE (19:45)
[2019-07-18] MEDS ORDERED: KETOROLAC TROMETHAMINE 30 MG/1 ML VIAL IVPUSH ONE (19:45)
[2019-07-18] MEDS ORDERED: ONDANSETRON 4 MG/2 ML VIAL IVPB ONE (19:45)
[2019-07-18] MEDS ORDERED: KETOROLAC TROMETHAMINE 30 MG/1 ML VIAL ONE (20:15)
[2019-07-18] MEDS ORDERED: ONDANSETRON 4 MG/2 ML VIAL ONE (20:16)
[2019-07-18 20:26] LABS: BASO % 1.1 % (0-2.0); EOS % 0.9 % (0-4.5); HEMATOCRIT 39.1 % (32.4-45.2); HEMOGLOBIN 13.2 GM/dl (10.7-15.3); LYMPH % 18.4 % (8-40); MCH 30.1 pg (25.7-33.7); MCHC 33.8 g/dl (32.0-36.0); MEAN PLT VOLUME 9.1 fl (7.5-11.1); MONO % 3.9 % (3.8-10.2); NEUT % 75.7 % (42.8-82.8); PLATELET COUNT 280 K/MM3 (134-434); RBC 4.39 M/mm3 (3.60-5.2); RDW 11.7 % (11.6-15.6)
[2019-07-18 20:32] LABS: ALBUMIN 3.8 g/dl (3.4-5.0); BILIRUBIN,TOTAL 0.4 mg/dl (0.2-1); CALCIUM 8.9 mg/dl (8.5-10); CREATININE 0.6 mg/dl (0.55-1.3); POTASSIUM 3.8 mmol/L (3.5-5.1); TOT PROT 7.1 g/dl (6.4-8.2)
[2019-07-18 20:45] LABS: EPITHELIAL CELLS FEW /hpf
--- NOTE | 2019-07-18 21:10 | PDOC ---
Documentation entered by Marilyn Murdock SCRIBE, acting as scribe for Yamilka Jean-Baptiste MD. Yamilka Jean-Baptiste MD: This documentation has been prepared by the manjuibe, Marilyn Murdock SCRIBE, under my direction and personally reviewed by me in its entirety. I confirm that the documentation accurately reflects all work , treatment, procedures, and medical decision making performed by me. History of Present Illness - General Chief Complaint: Pain Stated Complaint: ABD PAIN, DIARRHEA, NAUSEA History Source: Patient Exam Limitations: No Limitations - History of Present Illness Initial Comments: 07/18/19 19:55 The patient is a 28-year-old female who presents to the emergency department with nausea, vomiting and diarrhea, since June 30, associated with abdominal pain and lightheadedness. The patient reports since June 30, she s been having nausea, multiple episodes of vomiting and diarrhea. The patient reports she thought it was a stomach virus and let it along. The symptoms improve for a few days however, the vomiting and diarrhea returned, and she states it was associated with intermittent episodes of epigastric pain. The patient reports since this morning, shes been having unbearable, intermittent epigastric pain, with the severity of 20/10 at worse, current it is a 7/10. The patient reports the pain is aggravated with eating, and secondary to the severity of the pain, she has difficulty standing up. The patient reports associated symptoms of acid reflux, vomiting, diarrhea, and lightheadedness (even while lying down). Denies fever however reports she would feel warm, followed by having chills then vomiting. The patient states she feels the symptoms are similar to last time when she was dx with H. pylori. The patient reports following up at an [facility], from where she was referred to the ER for further management. Denies daily antacids use. Denies blood in the emesis or stool. PAST MEDICAL HISTORY: hx of H. Pylori and anxiety PAST SURGICAL HISTORY: no significant history FAMILY HISTORY: The patient reports her mother has a lot of abdominal issues, however shes unable to recall the exact issues. SOCIAL HISTORY: Pt lives with family. MEDICATIONS: Buspirone and control. ALLERGIES: As per nursing notes Review of system: General: No fevers. +chills, no weakness, no weight loss HEENT: No change in vision. No sore throat,. No ear pain CardioVascular: No chest pain or shortness of breath Respiratory: No cough, or wheezing. Gastrointestinal: +abdominal pain, nausea, vomiting, and diarrhea. No constipation or rectal bleeding Genitourinary: No dysuria, hematuria, or frequency Musculoskeletal: No joint or muscle pain or swelling Neurologic: +lightheadedness. No headache, vertigo or loss of consciousness Psychiatric: nor depression Skin: No rashes or easy bruising Endocrine: no increased thirst or abnormal weight change Allergic: no skin or latex allergy All other systems reviewed and normal Physical exam: General: Well-nourished well-developed individual, no acute distress HEENT: Throat: Normal, tonsils normal, no erythema or exudate Neck: Supple, no meningeal signs, no lymphadenopathy Eyes :Pupils equal reactive and round, extraocular motion intact Chest: Nontender to palpation Cardiac: S1-S2 normal, regular rate and rhythm, no murmurs rubs or gallops Respiratory: Lungs clear to auscultation bilateral Abdomen: +mild tenderness to the epigastric, no guarding or rebound. Soft, nondistended, normal bowel sounds. Extremities: Warm, dry, no cyanosis, clubbing, or edema Skin: No rashes Neuro: Alert and oriented x3, nonfocal exam, grossly intact, normal gait Psych: Normal mood and affect Take that pork at home 07/18/19 20:04 Assessment and plan: This is a 28-year-old female who comes in complaining of multiple episodes intermittent right upper quadrant epigastric abdominal pain times approximately 3 weeks. Patient said eating does seem to make the pain worse. Patient does have a family history of a mother with gallstones. Work- up initiated including blood work CBC, comp, urine, urine and gallbladder ultrasound. 21:00 Patient's blood work was normal including normal white count no left shift and normal chemistries as well as a normal urinalysis Patient's ultrasound did show multiple stones in the gallbladder but no evidence of acute cholecystitis Discussed with patient the importance of following up with a surgeon for elective removal of her gallbladder and adhering to a fat-free diet. I also recommended that patient follow-up with her primary care doctor to get tested for H. pylori. I did order H. pylori stool here however patient was unable to provide a stool sample. Patient discharged home and will follow-up with her primary care doctor. Past History - Past Medical History Allergies/Adverse Reactions: Allergies Allergy/AdvReac Type Severity Reaction Status Date / Time apple Allergy Intermediate Swelling Verified 07/18/19 19:08 pesticide Allergy Intermediate Swelling Verified 07/18/19 19:08 soy Allergy Intermediate Swelling Verified 07/18/19 19:08 Home Medications: Ambulatory Orders Norethindrone AC-Eth Estradiol [Junel 1.5 mg-30 Mcg Tablet] 1 tab PO DAILY 07/18 Asthma: No Cancer: No Cardiac Disorders: No COPD: No Diabetes: No HTN: No Psychiatric Problems: Yes (anxiety) Seizures: No Thyroid Disease: No - Immunization History Immunization Up to Date: Yes - Psycho Social/Smoking Cessation Hx Smoking History: Never smoked Have you smoked in the past 12 months: No Hx Alcohol Use: No Drug/Substance Use Hx: No Substance Use Type: None Hx Substance Use Treatment: No *Physical Exam - Vital Signs Last Vital Signs Temp Pulse Resp BP Pulse Ox 98.8 F 88 16 105/71 100 07/18/19 19:07 07/18/19 19:07 07/18/19 19:07 07/18/19 19:07 07/18/19 19:07 ED Treatment Course - LABORATORY CBC & Chemistry Diagram: 07/18/19 20:05 07/18/19 19:53 - ADDITIONAL ORDERS Additional order review: Laboratory Results 07/18/19 07/18/19 07/18/19 20:05 20:05 19:53 Sodium 138 Potassium 3.8 Chloride 105 Carbon Dioxide 28 Anion Gap 5 L BUN 12.0 Creatinine 0.6 Est GFR (CKD-EPI)AfAm 145.80 Est GFR (CKD-EPI)NonAf 125.80 Random Glucose 93 Calcium 8.9 Total Bilirubin 0.4 AST 17 ALT 23 Alkaline Phosphatase 72 Total Protein 7.1 Albumin 3.8 Urine Color Yellow Urine Appearance Clear Urine pH 8.0 Urine Protein 1+ H Urine Glucose (UA) Negative Urine Ketones Negative Urine Blood Trace-intact Urine Nitrite Negative Urine Bilirubin Negative Urine Urobilinogen 1.0 Ur Leukocyte Esterase Negative Urine RBC 2-5 Urine WBC 0-2 Ur Transition Epith Cell Few Urine Bacteria Few Urine HCG, Qual Negative 07/18/19 20:05 RBC 4.39 MCV 89.0 MCHC 33.8 RDW 11.7 MPV 9.1 Neutrophils % 75.7 Lymphocytes % 18.4 Monocytes % 3.9 Eosinophils % 0.9 Basophils % 1.1 - RADIOLOGY Radiology Studies Ordered: Category Date Time Status GALLBLADDER US [US] Stat Ultrasound 07/18/19 19:44 Ordered - Medications Given in the ED: ED Medications Discontinued Medications Generic Name Dose Route Start Last Admin Trade Name Tete PRN Reason Stop Dose Admin Sodium Chloride 1,000 mls @ 1,000 mls/hr 07/18/19 19:45 07/18/19 20:15 Normal Saline - IV 07/18/19 20:44 1,000 mls/hr .Q1H ONE Administration Ketorolac Tromethamine 30 mg 07/18/19 19:45 07/18/19 20:35 Toradol Injection - IVPUSH 07/18/19 19:46 30 mg ONCE ONE Administration Ondansetron HCl 4 mg 07/18/19 19:45 07/18/19 20:15 Zofran Injection IVPB 07/18/19 19:46 4 mg ONCE ONE Administration Discharge - Discharge Information Problems reviewed: Yes Clinical Impression/Diagnosis: Gallstones Abdominal pain Qualifiers: Abdominal location: right upper quadrant Qualified Code(s): R10.11 - Right upper quadrant pain Condition: Stable Disposition: HOME - Admission No - Follow up/Referral Referrals: Bc Gandhi MD [Primary Care Provider] - Joshua Coley MD [Staff Physician] - - Patient Discharge Instructions Additional Instructions: For the pain take Tylenol or ibuprofen. Your ultrasound showed that you did have multiple stones in the gallbladder so it is important that you adhere to a nonfat diet as fat in your diet will cause increased pain and discomfort. Follow-up with a surgeon if you need a surgeon call Dr. Coley Return to the emergency department immediately with ANY new, persistent or worsening symptoms. Continue any medications as previously prescribed by your physician. You should follow up with your primary doctor as soon as possible regarding today's emergency department visit. . Please make sure your doctor reviews the results of your emergency evaluation. Thank you for coming to the Emergency Department today for your care. It was a pleasure to see you today. Please note that your evaluation is INCOMPLETE until you follow-up with your doctor. - Post Discharge Activity
== END 2019-07-18 21:18 | disposition home or self-care (01) ==
LOC: FER 19:07
PROC: 3E0333Z Introduction of Anti-inflammatory into Peripheral Vein, Percutaneous Approach (ICD-10-PCS; principal; 2019-07-18)
PROC: 3E033GC Introduction of Other Therapeutic Substance into Peripheral Vein, Percutaneous Approach (ICD-10-PCS; 2019-07-18)
DX: R10.11 Right upper quadrant pain (principal); K80.80 Other cholelithiasis without obstruction; Z91.018 Allergy to other foods; Z91.09 Other allergy status, other than to drugs and biological substances
CPT/HCPCS: 36415; 76705-TC; 80053; 81003; 81015; 84703; 85025; 99283-25; J7030

== ENCOUNTER 2019-07-26 09:30 | Day surgery (SDC) | payer OTHER ==
[2019-07-25 14:08] VITALS: BMI 23.6
[2019-07-26] MEDS ORDERED: ONDANSETRON 4 MG/2 ML VIAL IVPUSH PRN (09:43)
[2019-07-26] MEDS ORDERED: LACTATED RINGERS SOLUTION 1,000 ML IV SCH (09:45)
[2019-07-26] MEDS ORDERED: DEXAMETHASONE SOD PHOSPHATE 4 MG/1 ML VIAL ONE ×2 (10:43→12:50)
[2019-07-26] MEDS ORDERED: fentaNYL CITRATE 250 MCG/5 ML VIAL ONE (10:43)
[2019-07-26] MEDS ORDERED: PROPOFOL 20 ML ONE (10:44)
[2019-07-26] MEDS ORDERED: ROCURONIUM BROMIDE 50 MG/5 ML SYRINGE ONE (10:44)
[2019-07-26] MEDS ORDERED: MIDAZOLAM HCL 2 MG/2 ML SINGLE DOSE VIAL ONE (10:44)
--- NOTE | 2019-07-26 11:22 | HP ---
History & Physical Update - History History: No Change - Physical Physical: No Change - Assessment Assessment: No Change - Plan Plan: No Change (for lap vinicio possible open; r/b/t/a's d/w the patient in the office and here pre-op and informed consent obtained.)
[2019-07-26] MEDS ORDERED: BUPIVACAINE HCL/PF 0.5% (5 MG/ML) 30 ML VIAL IJ ONE ×4 (11:39→12:06)
[2019-07-26] MEDS ORDERED: ceFAZolin SODIUM 1 GM VIAL IVPB ONE (12:04)
[2019-07-26] MEDS ORDERED: ceFAZolin SODIUM 1 GM VIAL ONE (12:43)
[2019-07-26] MEDS ORDERED: KETOROLAC TROMETHAMINE 30 MG/1 ML VIAL ONE (12:44)
[2019-07-26] MEDS ORDERED: NEOSTIGMINE METHYLSULFATE 0.5 MG/ML - 10 ML MDV ONE (13:09)
--- NOTE | 2019-07-26 13:12 | OP ---
Operative Note - Note: Operative Date: 07/26/19 Pre-Operative Diagnosis: cholelithiaisi/chronic cholecystitis Operation: laparoscopic cholecystectomy Findings: cholelithiasis Post-Operative Diagnosis: Same as Pre-op Surgeon: Joshua Coley Hospital Admissions Clerk: Giorgi Zhang Anesthesiologist/CARD PUNCHING MACHINE OPERATOR: Zayra Callejas Anesthesia: General Specimens Removed: gallbladder and contents Estimated Blood Loss (mls): 10 Drains & Tubes with Location: none
[2019-07-26] MEDS ORDERED: ACETAMINOPHEN 1000 MG/100 ML VIAL (NON FORMULARY) IVPB ONE ×2 (13:28→13:45)
[2019-07-26] MEDS ORDERED: ACETAMINOPHEN INJECTION 100 ML IVPB ONE (13:33)
--- NOTE | 2019-07-26 13:52 | SURG ---
Surgery Digital Media Strategist Note Digital Media Strategist: Giorgi Zhang PA-C (Suzy) Date of Service: 07/26/19 Diagnosis: cholelithiaisis/chronic cholecystitis Procedure: Operation: laparoscopic cholecystectomy I was present for the entirety of the operative procedure. For further detail, please refer to operative report. Visit type - Case Type Case Type: Scheduled - Emergency Emergency Visit: No - New patient This patient is new to me today: Yes Date on this admission: 07/26/19 - Critical Care Critical Care patient: No
[2019-07-26 16:25] VITALS: BP 127/61; PULSE 68; TEMP 97.8
--- NOTE | 2019-07-29 10:37 | OP ---
DATE OF OPERATION: 07/26/2019 PREOPERATIVE DIAGNOSIS: Cholecystitis and chronic cholelithiasis. POSTOPERATIVE DIAGNOSIS: Cholecystitis and chronic cholelithiasis. PROCEDURE: Laparoscopic cholecystectomy. SURGEON: Joshua Coley MD CLOTH SHEARER: EILEEN Batres ANESTHESIA: General. OPERATIVE FINDINGS: Cholelithiasis without evidence of acute cholecystitis. The rest of the findings were unremarkable. DESCRIPTION OF PROCEDURE: The patient was placed on the operating room table in supine position. After the induction of general anesthesia, the patient's abdomen was prepped with ChloraPrep and draped in sterile fashion. Time-out was taken and then pneumoperitoneum established above the umbilicus using a Veress needle. Once 15 mm of intra-abdominal pressure was obtained, a 5-mm port was placed at the umbilicus. Additional lateral 5-mm ports and a subxiphoid 12-mm port were placed and laparoscopy carried out, and the previously noted findings were observed. The gallbladder was placed on cephalad and lateral traction, and dissection was begun at the neck of the gallbladder where the peritoneum was opened medially and laterally using blunt and sharp dissection and electrocautery. Dissection continued in the triangle of Calot where the cystic duct was identified coursing from the neck of the gallbladder distally to the common bile duct. It was dissected proximally and distally for length. Similarly, the artery was similarly identified and dissected. A critical view of safety was taken, and then the cystic duct divided proximally and distally using Endo Danni after it was clipped twice proximally and distally with large hemoclips. The artery was similarly clipped and divided. Hemostasis was checked for and noted to be good and then the gallbladder was removed from the liver bed in a retrograde fashion using electrocautery. Prior to removal from the edge of the liver, hemostasis was again verified and then the gallbladder removed from the edge of the liver, placed in an EndoCatch, and brought out through the subxiphoid port. Pneumoperitoneum was reestablished, hemostasis verified again, and then the 5-mm lateral and subxiphoid ports were removed under laparoscopic vision without evidence of bleeding from the port sites. The umbilical port was removed and the pneumoperitoneum evacuated. All port sites were infiltrated with 0.5% Marcaine and the skin edges closed with 4-0 Biosyn in a subcuticular and continuous fashion. Steri-Strips and Band-Aid dressings were placed and the procedure terminated at this point and the patient aroused from general anesthesia and transferred to the post anesthesia care unit in stable condition awake and alert. ESTIMATED BLOOD LOSS: 10 mL. REPLACEMENTS: Crystalloid. DRAINS: None. SPECIMENS: Gallbladder and contents to Pathology. I, Joshua Coley, was physically present in the operating room from the time the patient was placed on the operating room table until she was transferred to the post anesthesia care unit in [employer]. MD BEVERLEY Lea/[id number] MTDD
--- NOTE | 2019-07-30 14:27 | PATH ---
Surgical Pathology Report Patient Name: FORD CHAPA [facility]. Rec. #: [id number] /Age/Gender: 1990 (Age: 28) / F Account: [id number] Location: [facility] SURGICAL Taken: 07/26/2019 Received: 07/29/2019 Reported: 07/30/2019 Physicians: Joshua Coley MD Specimen(s) Received GALLBLADDER Clinical History Cholecystitis Final Diagnosis GALLBLADDER, LAPAROSCOPIC CHOLECYSTECTOMY: CHRONIC CHOLECYSTITIS WITH CHOLELITHIASIS. Electronically Signed Krysta Hinds M.D. Gross Description Received in formalin, labeled "gallbladder," is a 9.5 x 2.5 x 2.3 cm. gallbladder with a 0.2 cm. in length portion of cystic duct attached. The outer surface is hua green and varies from smooth to shaggy. The lumen contains green, tenacious bile as well as abundant yellow, fragmented choleliths ranging from 0.1-0.3 cm in greatest dimension. The mucosa is dark green and velvety. The wall of the gallbladder measures 0.1 cm. in thickness. Electrical Assistant sections are submitted in one cassette. /07/29/201907/29/2019
== END 2019-07-26 16:05 | disposition home or self-care (01) ==
LOC: JASU-SURG 09:30
PROVIDERS: ATTEND Surgery
PROC: 0FT44ZZ Resection of Gallbladder, Percutaneous Endoscopic Approach (ICD-10-PCS; principal; 2019-07-26 11:00)
DX: K80.10 Calculus of gallbladder with chronic cholecystitis without obstruction (principal)
CPT/HCPCS: 88304-TC; 94760; J0131

== ENCOUNTER 2021-01-02 21:44 | Emergency (ER) | payer OTHER ==
[2021-01-02 21:57] VITALS: BP 122/82; PULSE 71; TEMP 100; BMI 25.7
[2021-01-02 22:18] LABS: BASO % 0.7 % (0-2.0); EOS % 2.8 % (0-4.5); HEMOGLOBIN 11.4 GM/dl (10.7-15.3); LYMPH % 18.2 % (8-40); MCH 31.1 pg (25.7-33.7); MCHC 34.6 g/dl (32.0-36.0); MEAN CELL VOLUME 89.8 fl (80-96); MEAN PLT VOLUME 8.1 fl (7.5-11.1); MONO % 7.8 % (3.8-10.2); NEUT % 70.5 % (42.8-82.8); PLATELET COUNT 213 K/MM3 (134-434); RBC 3.67 M/mm3 (3.60-5.2); RDW 11.6 % (11.6-15.6); WHITE BLOOD COUNT 8.4 K/mm3 (4.0-10.8)
[2021-01-02 22:33] LABS: HCG,QUALITATIVE URINE Positive
[2021-01-02 22:40] LABS: EPITHELIAL CELLS FEW /hpf
[2021-01-02 22:41] LABS: URINE MUCUS 1+
[2021-01-02 22:42] LABS: AMORP PHOS 1+ /hpf (NONE SEEN)
[2021-01-02 22:42] LABS: ALBUMIN 3.7 g/dl (3.4-5.0); BILIRUBIN,TOTAL 0.3 mg/dl (0.2-1); CALCIUM 8.5 mg/dl (8.5-10); CREATININE 0.6 mg/dl (0.55-1.3); TOT PROT 6.4 g/dl (6.4-8.2)
== END 2021-01-02 23:56 | disposition home or self-care (01) ==
LOC: FER 21:44
DX: O21.9 Vomiting of pregnancy, unspecified (principal)
CPT/HCPCS: 36415; 76817-TC; 80053; 81003; 81015; 84702; 84703; 85025; 86850; 86900; 86901; 99284-25

== ENCOUNTER 2021-04-01 19:46 | Emergency (ER) | payer OTHER ==
[2021-04-01 19:57] VITALS: BMI 26.6
[2021-04-01] MEDS ORDERED: ONDANSETRON 4 MG/2 ML VIAL IVPB ONE (20:19)
[2021-04-01] MEDS ORDERED: SODIUM CHLORIDE 1,000 ML IV STA (20:19)
[2021-04-01] MEDS ORDERED: ONDANSETRON 4 MG/2 ML VIAL ONE (20:35)
[2021-04-01 21:46] VITALS: BP 117/80; PULSE 101; TEMP 98.3
[2021-04-03 14:08] LABS: SARS-CoV-2 NAA Not Detected (Not Detected)
== END 2021-04-01 22:02 | disposition home or self-care (01) ==
LOC: FER 19:46
PROC: 3E033GC Introduction of Other Therapeutic Substance into Peripheral Vein, Percutaneous Approach (ICD-10-PCS; principal; 2021-04-01)
DX: O26.892 Other specified pregnancy related conditions, second trimester (principal); R09.81 Nasal congestion; Z3A.20 20 weeks gestation of pregnancy
CPT/HCPCS: 87804; 99284-25; C9803; U0003; U0005

== ENCOUNTER 2023-05-22 21:07 | Observation (INO) | payer OTHER ==
[2023-05-22 21:25] VITALS: BMI 26.7
[2023-05-22 22:12] LABS: HEMATOCRIT 21.1 % (32.4-45.2); MCH 31.3 pg (25.7-33.7); MCHC 32.9 g/dl (32.0-36.0); MEAN PLT VOLUME 7.6 fl (7.5-11.1); PLATELET COUNT 295.3 10^3/uL (134-434); RBC 2.22 10^6/uL (3.60-5.2); RDW 16.4 % (11.6-15.6); WHITE BLOOD COUNT 11.8 10^3/uL (4.0-10.8)
[2023-05-22 22:15] LABS: HEMOGLOBIN 6.9 G/dL (10.7-15.3)
[2023-05-22 22:20] LABS: EPITHELIAL CELLS FEW /hpf
[2023-05-22 22:21] LABS: INR 1.01 (0.83-1.09); PROTHROMBIN TIME (PATIENT) 11.7 SEC (9.7-13.0)
[2023-05-22 22:22] LABS: HCG,QUALITATIVE URINE Negative
[2023-05-22 22:32] LABS: ALBUMIN 3.8 g/dl (3.4-5.0); BILIRUBIN,TOTAL 0.8 mg/dl (0.2-1); BLOOD UREA NITROGEN 8.2 mg/dl (7-18); CALCIUM 8.7 mg/dl (8.5-10.1); CREATININE 0.5 mg/dl (0.6-1.3); POTASSIUM 4.1 mmol/L (3.5-5.1); SGOT/AST 21.2 U/L (15-37); SGPT/ALT 35.6 U/L (7-52)
[2023-05-23] MEDS ORDERED: LORazepam 0.5 MG TABLET PO ONE (01:18)
[2023-05-23] MEDS ORDERED: ACETAMINOPHEN 325 MG TABLET (FP) PO PRN (03:12)
[2023-05-23] MEDS ORDERED: SERTRALINE HCL 50 MG TABLET (FP) PO SCH ×2 (10:00→22:00)
[2023-05-23 10:11] VITALS: RESP 18
[2023-05-23 12:29] LABS: BLOOD UREA NITROGEN 6.1 mg/dl (7-18); CALCIUM 9.2 mg/dl (8.5-10.1); CREATININE 0.5 mg/dl (0.6-1.3); POTASSIUM 3.9 mmol/L (3.5-5.1)
[2023-05-23 12:33] VITALS: BP 111/57; PULSE 75; TEMP 98.5
[2023-05-23 12:38] LABS: HEMATOCRIT 31.1 % (32.4-45.2); HEMOGLOBIN 10.1 G/dL (10.7-15.3); MCH 30.5 pg (25.7-33.7); MCHC 32.3 g/dl (32.0-36.0); MEAN CELL VOLUME 94.4 fl (80-96); MEAN PLT VOLUME 7.9 fl (7.5-11.1); PLATELET COUNT 336.6 10^3/uL (134-434); RBC 3.29 10^6/uL (3.60-5.2); RDW 15.6 % (11.6-15.6); WHITE BLOOD COUNT 12.1 10^3/uL (4.0-10.8)
== END 2023-05-23 13:32 | disposition home or self-care (01) ==
LOC: FER 21:07 → FM/S 22:52
PROVIDERS: ADMIT Internal Medicine
PROC: 30233N1 Transfusion of Nonautologous Red Blood Cells into Peripheral Vein, Percutaneous Approach (ICD-10-PCS; principal; 2023-05-22)
DX: D64.9 Anemia, unspecified (principal); K21.9 Gastro-esophageal reflux disease without esophagitis; F41.9 Anxiety disorder, unspecified; Z98.890 Other specified postprocedural states; Z90.49 Acquired absence of other specified parts of digestive tract; Z91.09 Other allergy status, other than to drugs and biological substances; Z91.018 Allergy to other foods
CPT/HCPCS: 36415; 36430; 70450-TC; 80048; 80053; 81003; 81015; 82728; 83540; 83550; 84703; 85027; 85610; 86850; 86900; 86901; 86922; 87040; 99285-25; G0378; P9058